=== PATIENT | male | born 1950 | race Two or more races ===

== ENCOUNTER 2018-10-04 15:31 | Outpatient (CLI) | payer OTHER | END 2018-10-04 15:38 | disposition home or self-care (01) | LOC: LAB 15:31 | DX: I10 Essential (primary) hypertension (principal) ==

== ENCOUNTER → 2018-10-04 | Outpatient (CLI) | payer OTHER ==
[~2018-10-04] MED LIST: AVAPRO300 MG; CLONAZEPAM0.5 MG; GILTUSS TR TAB1 EACH PO; WELLBUTRIN XL300 MG; ZITHROMAX200 MG PO; ZOLPIDEM TART12.5 MG; ZYRTEC10 MG PO
== END | disposition home or self-care (01) ==
LOC: RAD 501 14:03
DX: R07.89 Other chest pain (principal)

== ENCOUNTER 2019-11-15 12:26 | Outpatient (CLI) | payer OTHER | END 2019-11-15 12:28 | disposition home or self-care (01) | LOC: RAD 12:26 | DX: M41.85 Other forms of scoliosis, thoracolumbar region (principal); M54.6 Pain in thoracic spine; M43.17 Spondylolisthesis, lumbosacral region ==